=== PATIENT | male | born 1995 | race Two or more races ===

== ENCOUNTER 2017-08-13 20:12 | Emergency (ER) | payer SELFPAY ==
[~2017-08-13] VITALS: Ht 185.4 cm; Wt 70.0 kg
[2017-08-13] MEDS ORDERED: ONDANSETRON HCL 4MG/2ML VIAL IV STA (23:09)
[2017-08-13] MEDS ORDERED: FAMOTIDINE 20MG/2ML VIAL IV STA (23:09)
[2017-08-13] MEDS ORDERED: SODIUM CHLORIDE 0.9% 1,000 ML IV ONE (23:09)
[2017-08-13] MEDS ORDERED: KETOROLAC 30MG/ML VIAL IV ONE (23:15)
[2017-08-13 23:20] LABS: CLARITY URINE CLEAR (CLEAR); COLOR URINE YELLOW (YELLOW); GLUCOSE URINE NEGATIVE (NEGATIVE); KETONES URINE TRACE (NEGATIVE); LEUKOCYTE ESTERASE URINE NEGATIVE (NEGATIVE); NITRITE URINE NEGATIVE (NEGATIVE); OCCULT BLOOD URINE NEGATIVE (NEGATIVE); PROTEIN URINE NEGATIVE (NEGATIVE); SPECIFIC GRAVITY URINE 1.027 (1.005-1.030)
[2017-08-13 23:36] LABS: BASOPHILS % 0.3 % (0.0-2.0); EOSINOPHILS % 0.3 % (0.0-5.0); HEMATOCRIT. 42.7 % (42.0-52.0); HEMOGLOBIN. 14.8 g/dL (14.0-18.0); LYMPHOCYTES % 20.9 % (20.0-50.0); MEAN CORPUSCULAR HEMOGLOBIN 29.2 pg (28.0-32.0); MEAN PLATELET VOLUME 8.1 fl (7.4-10.4); MONOCYTES % 6.7 % (2.0-8.0); NEUTROPHILS % 71.8 % (40.0-76.0); PLATELET 184 x1000/uL (130-400); RED BLOOD CELL COUNT 5.08 mill/uL (4.7-6.1)
[2017-08-14 00:16] LABS: CHLORIDE 103 mEq/L (98-107)
[2017-08-14 00:25] LABS: CARBON DIOXIDE 29 mEq/L (21-32)
[2017-08-14 01:00] VITALS: BP 110/73
== END 2017-08-14 01:25 | disposition home or self-care (01) ==
LOC: ER 20:30
DX: K29.00 Acute gastritis without bleeding (principal); K21.9 Gastro-esophageal reflux disease without esophagitis; R10.13 Epigastric pain
CPT/HCPCS: 36415; 80053; 81003; 83690; 85025; 96361; 96374; 96375; 99284; J1885; J2405; J3490; J7030; Z7610